=== PATIENT | male | born 1960 | race Caucasian/White ===

== ENCOUNTER → 2019-10-14 | Outpatient (CLI) | payer BC ==
[~2019-10-14] MED LIST: CATHETER FLUSH 10 ML SYR IV PRN; HOLD METFORMIN - RECEIVED CONTRAST 20 ML VIAL IV SCH; IOHEXOL 350 MG/ML 100 ML (OMNIPAQUE 350) VIAL IV ONE; NS 100 ML (IVPB) BAG IV ONE
[2019-10-14 10:00] LABS: CREATININE SERUM 0.98 MG/DL (0.60-1.30); GFR ESTIMATED > 60
[2019-10-14 10:01] LABS: BUN/CREATININE RATIO 17
--- NOTE | 2019-10-14 11:17 | Diagnostic Imaging Report ---
PROCEDURE: CT pelvis with contrast. TECHNIQUE: Oral and intravenous contrast were administered with pelvic CT performed. Auto Exposure Controls were utilized during the CT exam to meet ALARA standards for radiation dose reduction. INDICATION: Anal spasm and pain. COMPARISON: Correlation is made with prior CT from 07/26/2009. FINDINGS: The bladder, prostate and seminal vesicles are unremarkable. The rectum and anus are unremarkable. No perirectal or perianal fluid collection or abscess is identified. Ischiorectal fossa is unremarkable. There is no free fluid or fluid collection in the pelvis. No iliac or inguinal lymphadenopathy is seen. The bony structures are unremarkable. IMPRESSION: Unremarkable CT of the pelvis with contrast. Dictated by: Dictated on workstation # [id number]
== END ==
LOC: RAD 09:29
PROVIDERS: ATTEND Surgery
DX: K59.4 Anal spasm (principal); K62.89 Other specified diseases of anus and rectum
CPT/HCPCS: 36415; 72193; 82565; 84520

== ENCOUNTER 2020-05-30 12:33 | Emergency (ER) | payer BC ==
[~2020-05-30] VITALS: Ht 182 cm; Wt 86.1 kg
[2020-05-30] MEDS ORDERED: LORazepam INJ 2 MG/ML (ATIVAN) VIAL IVP PRN (13:00)
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
[2020-05-30 13:05] LABS: BASOPHILS % (AUTO) 0 % (0-10); EOSINOPHILS # (AUTO) 0.1 10^3/uL (0.0-0.3); EOSINOPHILS % (AUTO) 1 % (0-10); HEMATOCRIT 44 % (40-54); HEMOGLOBIN 15.4 g/dL (13.3-17.7); LYMPHOCYTES # (AUTO) 1.7 10^3/uL (1.0-4.0); LYMPHOCYTES % (AUTO) 22 % (12-44); MEAN CORPUSCULAR HEMOGLOBIN 32 pg (25-34); MEAN CORPUSCULAR HGB CONC 35 g/dL (32-36); MEAN CORPUSCULAR VOLUME 91 fL (80-99); MEAN PLATELET VOLUME 8.7 fL (9.0-12.2); MONOCYTES # (AUTO) 0.9 10^3/uL (0.0-1.0); MONOCYTES % (AUTO) 11 % (0-12); NEUTROPHILS # (AUTO) 5.2 10^3/uL (1.8-7.8); NEUTROPHILS % (AUTO) 66 % (42-75); PLATELET COUNT 331 10^3/uL (130-400); WHITE BLOOD COUNT 7.9 10^3/uL (4.3-11.0)
[2020-05-30 13:15] LABS: ALBUMIN 4.1 GM/DL (3.2-4.5); CHLORIDE 101 MMOL/L (98-107); POTASSIUM 3.7 MMOL/L (3.6-5.0); SODIUM 134 MMOL/L (135-145)
[2020-05-30 13:16] LABS: CALCIUM 9.2 MG/DL (8.5-10.1)
[2020-05-30 13:18] LABS: GLUCOSE 148 MG/DL (70-105); TOTAL PROTEIN 7.7 GM/DL (6.4-8.2)
[2020-05-30 13:19] LABS: BILIRUBIN,TOTAL 0.4 MG/DL (0.1-1.0); CARBON DIOXIDE 22 MMOL/L (21-32)
[2020-05-30 13:21] LABS: ALKALINE PHOSPHATASE 69 U/L (40-136); CREATININE SERUM 1.02 MG/DL (0.60-1.30); GFR ESTIMATED > 60
[2020-05-30 13:22] LABS: BUN/CREATININE RATIO 17
[2020-05-30 13:24] LABS: ALANINE AMINOTRANSFERASE 60 U/L (0-55)
--- NOTE | 2020-05-30 13:43 | Diagnostic Imaging Report ---
PROCEDURE: MR imaging of the brain without contrast. TECHNIQUE: Multiplanar, multisequence MR imaging of the brain was performed without contrast. INDICATION: New onset tremors. COMPARISON: No prior studies are available for comparison. FINDINGS: Ventricles and sulci are within normal limits. No sulcal effacement or midline shift is identified. No acute intra-axial or extra-axial hemorrhage is detected. No diffusion restriction is identified to suggest acute ischemia. Normal expected flow-voids in the carotid siphons are seen. No white matter changes are identified. There is artifact in the soft tissues in the right frontal region. Corpus callosum is unremarkable. Sella and parasellar structures are unremarkable. IMPRESSION: Unremarkable noncontrast MRI of the brain. No acute abnormality is detected. Dictated by: Dictated on workstation # [id number]
[2020-05-30 13:45] LABS: FREE T4 (FREE THYROXINE) 1.11 NG/DL (0.70-1.48)
[2020-05-30 13:53] LABS: BILIRUBIN,URINE NEGATIVE (NEGATIVE); CLARITY,URINE CLEAR; COLOR,URINE YELLOW; GLUCOSE, URINE (UA) NEGATIVE (NEGATIVE); KETONES,URINE NEGATIVE (NEGATIVE); LEUKOCYTE ESTERASE ,URINE NEGATIVE (NEGATIVE); NITRITE,URINE NEGATIVE (NEGATIVE); PROTEIN,URINE NEGATIVE (NEGATIVE)
[2020-05-30 14:08] LABS: BACTERIA,URINE NEGATIVE /HPF
[2020-05-30] MEDS ORDERED: PROP10TA8 PO (14:34)
[2020-05-30] MEDS ORDERED: PROPRANOLOL 20 MG (INDERAL) TABLET PO ONE (14:45)
[2020-05-30] MEDS ORDERED: LORA-404 PO (15:05)
[2020-05-30 15:17] VITALS: BP 141/90
== END 2020-05-30 15:16 | disposition home or self-care (01) ==
LOC: EDUNIT# 12:33 → ER 12:36
DX: G25.3 Myoclonus (principal); Z88.5 Allergy status to narcotic agent
CPT/HCPCS: 36415; 70551; 80053; 81000; 82607; 82652; 84425; 84439; 84443; 85025; 86141

== ENCOUNTER → 2020-09-05 | Outpatient (CLI) | payer BC ==
[~2020-09-05] MED LIST changes: -CATHETER FLUSH 10 ML SYR IV PRN; -HOLD METFORMIN - RECEIVED CONTRAST 20 ML VIAL IV SCH; -IOHEXOL 350 MG/ML 100 ML (OMNIPAQUE 350) VIAL IV ONE; +LORA-404 PO; -NS 100 ML (IVPB) BAG IV ONE; +PROP10TA8 PO
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
== END ==
LOC: RAD 15:41
PROVIDERS: ATTEND Family Medicine
DX: S06.0X9A Concussion with loss of consciousness of unspecified duration, initial encounter (principal); X58.XXXA Exposure to other specified factors, initial encounter
CPT/HCPCS: 70450; 72125

== ENCOUNTER → 2020-09-21 | Outpatient (CLI) | payer BC | LOC: LABNPT 06:46 | DX: Z01.812 Encounter for preprocedural laboratory examination (principal); Z20.822 Contact with and (suspected) exposure to COVID-19 | CPT/HCPCS: 87635 ==

== ENCOUNTER 2021-01-01 14:53 | Emergency (ER) | payer OTHER ==
[~2021-01-01] VITALS: Ht 182.8 cm; Wt 86.2 kg
[2021-01-01 15:03] VITALS: BP 134/88
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
== END 2021-01-01 15:46 | disposition home or self-care (01) ==
LOC: EDUNIT# 14:53 → ER 14:57
DX: S60.211A Contusion of right wrist, initial encounter (principal); V89.2XXA Person injured in unspecified motor-vehicle accident, traffic, initial encounter
CPT/HCPCS: 73090; 73130